=== PATIENT | female | born 1960 | race Caucasian/White ===

== ENCOUNTER → 2020-12-28 | Outpatient (CLI) | payer OTHER ==
[~2020-12-28] MED LIST: BENTYL 10MG CAP10 MG PO; CYMBALTA60 MG PO; FOLIC ACID1 MG PO; HUMIRA40 MG/0.8 SQ; KETOCONAZOLE120 ML TP; LYRICA 75 MG CA75 MG PO; METHOTREXATE T2.5 MG PO; MOVANTIK25 MG PO; NAPROXEN500 MG PO; OXYCODON-ACETA1 EAC1 PO; PROTONIX40 MG PO; ROBAXIN 750 MG750 MG PO; SYNTHROID75 MCG PO; XANAX0.5 MG PO; ZOFRAN ODT 4 MG4 MG SL; ZYRTEC10 MG PO
== END ==
LOC: RAD 08:37
PROC: B01B1ZZ Fluoroscopy of Spinal Cord using Low Osmolar Contrast (ICD-10-PCS; principal; 2020-12-28)
DX: M54.5 Low back pain (principal); Z98.1 Arthrodesis status
CPT/HCPCS: 72132

== ENCOUNTER 2021-02-03 17:41 | Emergency (ER) | payer OTHER ==
[2021-02-03 18:32] LABS: HEMOGLOBIN 13.1 gm/dl (12.3-15.3); RED BLOOD COUNT 4.68 M/UL (4.00-5.10); WHITE BLOOD COUNT 11.4 K/UL (4.5-11.0)
[2021-02-03 18:46] LABS: BUN/CREATININE RATIO 15 (0-10)
[2021-02-03] MEDS ORDERED: ZOFRAN ODT 4 MG4 MG SL (20:59)
== END 2021-02-03 21:30 | disposition home or self-care (01) ==
LOC: ER1 17:41
PROVIDERS: Physician Assistant
DX: R10.9 Unspecified abdominal pain (principal); R11.0 Nausea
CPT/HCPCS: 80053; 85025; 96374; 96375; 99284; J2270; J2405; J7030; Q9967

== ENCOUNTER 2021-02-04 16:28 | Observation (INO) | payer OTHER ==
[~2021-02-04] VITALS: Ht 162.6 cm; Wt 77.1 kg
[~2021-02-04 16:28] MED LIST changes: -BENTYL 10MG CAP10 MG PO; -CYMBALTA60 MG PO; -FOLIC ACID1 MG PO; -HUMIRA40 MG/0.8 SQ; -KETOCONAZOLE120 ML TP; -LYRICA 75 MG CA75 MG PO; -METHOTREXATE T2.5 MG PO; -MOVANTIK25 MG PO; -NAPROXEN500 MG PO; -OXYCODON-ACETA1 EAC1 PO; -PROTONIX40 MG PO; -ROBAXIN 750 MG750 MG PO; -SYNTHROID75 MCG PO; -XANAX0.5 MG PO; -ZYRTEC10 MG PO
[2021-02-04 18:10] LABS: HEMOGLOBIN 10.9 gm/dl (12.3-15.3); RED BLOOD COUNT 3.98 M/UL (4.00-5.10); WHITE BLOOD COUNT 10.3 K/UL (4.5-11.0)
[2021-02-05] MEDS ORDERED: BENTYL 10MG CAP10 MG PO (00:19)
[2021-02-05] MEDS ORDERED: CYMBALTA60 MG PO (00:20)
[2021-02-05] MEDS ORDERED: NAPROXEN500 MG PO (00:22)
[2021-02-05] MEDS ORDERED: HUMIRA40 MG/0.8 SQ (00:23)
[2021-02-05] MEDS ORDERED: METHOTREXATE T2.5 MG PO (00:25)
[2021-02-05] MEDS ORDERED: LYRICA 75 MG CA75 MG PO (00:26)
[2021-02-05] MEDS ORDERED: MOVANTIK25 MG PO (00:26)
[2021-02-05] MEDS ORDERED: OXYCODON-ACETA1 EAC1 PO (00:27)
[2021-02-05] MEDS ORDERED: XANAX0.5 MG PO (00:27)
[2021-02-05] MEDS ORDERED: ROBAXIN 750 MG750 MG PO (00:28)
[2021-02-05] MEDS ORDERED: SYNTHROID75 MCG PO (00:29)
[2021-02-05] MEDS ORDERED: PROTONIX40 MG PO (00:29)
[2021-02-05] MEDS ORDERED: ZYRTEC10 MG PO (00:30)
[2021-02-05] MEDS ORDERED: KETOCONAZOLE120 ML TP (00:32)
[2021-02-05] MEDS ORDERED: FOLIC ACID1 MG PO (00:32)
[2021-02-05 03:47] LABS: HEMOGLOBIN 9.2 gm/dl (12.3-15.3)
[2021-02-05 03:51] LABS: RED BLOOD COUNT 3.35 M/UL (4.00-5.10); WHITE BLOOD COUNT 6.5 K/UL (4.5-11.0)
[2021-02-05 04:17] LABS: BUN/CREATININE RATIO 12 (0-10)
== END 2021-02-05 16:10 | disposition home or self-care (01) ==
LOC: ER1 16:28 → CDU 19:38 → MED SURG 4 22:01
PROVIDERS: Physician Assistant Medical; ADMIT Internal Medicine Infectious Disease
DX: R10.84 Generalized abdominal pain (principal); E86.0 Dehydration; G89.4 Chronic pain syndrome; E03.9 Hypothyroidism, unspecified; M35.00 Sjogren syndrome, unspecified; L40.50 Arthropathic psoriasis, unspecified; R11.0 Nausea; F41.9 Anxiety disorder, unspecified; Z93.3 Colostomy status; Z20.822 Contact with and (suspected) exposure to COVID-19; Z98.890 Other specified postprocedural states; Z79.899 Other long term (current) drug therapy
CPT/HCPCS: 36415; 74018; 80048; 80053; 81001; 83605; 83690; 83735; 84443; 85025; 96374; 96375; 96376; 99285; G0378; J2270; J2405; J3480; J7030; J7121; U0002

== ENCOUNTER → 2021-04-04 | Outpatient (CLI) | payer OTHER ==
[~2021-04-04] MED LIST changes: +BENTYL 10MG CAP10 MG PO; +CYMBALTA60 MG PO; +FOLIC ACID1 MG PO; +HUMIRA40 MG/0.8 SQ; +KETOCONAZOLE120 ML TP; +LYRICA 75 MG CA75 MG PO; +METHOTREXATE T2.5 MG PO; +MOVANTIK25 MG PO; +NAPROXEN500 MG PO; +OXYCODON-ACETA1 EAC1 PO; +PROTONIX40 MG PO; +ROBAXIN 750 MG750 MG PO; +SYNTHROID75 MCG PO; +XANAX0.5 MG PO; +ZYRTEC10 MG PO
== END ==
LOC: RAD 20:18
DX: R10.9 Unspecified abdominal pain (principal); K59.00 Constipation, unspecified
CPT/HCPCS: 74018

== ENCOUNTER → 2021-04-06 | Outpatient (CLI) | payer OTHER | LOC: RAD 19:57 | DX: R10.9 Unspecified abdominal pain (principal); K59.00 Constipation, unspecified | CPT/HCPCS: 74018 ==

== ENCOUNTER → 2021-04-08 | Outpatient (CLI) | payer OTHER | LOC: RAD 11:32 | DX: R10.9 Unspecified abdominal pain (principal); K59.00 Constipation, unspecified | CPT/HCPCS: 74018 ==

== ENCOUNTER 2021-05-21 16:34 | Emergency (ER) | payer MEDICARE, OTHER | END 2021-05-21 17:00 | disposition left against medical advice (07) | LOC: ER1 16:34 | DX: Z53.21 Procedure and treatment not carried out due to patient leaving prior to being seen by health care provider (principal) ==

== ENCOUNTER → 2021-06-25 | Outpatient (CLI) | payer MEDICARE, OTHER ==
[~2021-06-25] VITALS: Ht 160 cm; Wt 81.6 kg
[~2021-06-25] MED LIST changes: +BENADRYL25 MG PO; +DECADRON6 MG PO; +FLEXERIL 10 MG PO; +PREDNISONE20 MG PO; +Voltaren Gel 1 % TOP
== END ==
LOC: OPSV 12:09
DX: L40.50 Arthropathic psoriasis, unspecified (principal)
CPT/HCPCS: 96365; 96375; J1602; J2920

== ENCOUNTER 2021-07-20 10:21 | Emergency (ER) | payer MEDICARE, OTHER ==
[~2021-07-20 10:21] MED LIST changes: -BENADRYL25 MG PO; -DECADRON6 MG PO; -FLEXERIL 10 MG PO; -PREDNISONE20 MG PO; -Voltaren Gel 1 % TOP
[2021-07-20] MEDS ORDERED: PREDNISONE20 MG PO (11:37)
[2021-07-20] MEDS ORDERED: BENADRYL25 MG PO (11:37)
== END 2021-07-20 13:01 | disposition home or self-care (01) ==
LOC: ER1 10:21
DX: R21 Rash and other nonspecific skin eruption (principal); M19.90 Unspecified osteoarthritis, unspecified site
CPT/HCPCS: 96374; 96375; 99282; J1200; J2930

== ENCOUNTER 2021-07-22 11:56 | Emergency (ER) | payer MEDICARE, OTHER ==
[~2021-07-22 11:56] MED LIST changes: +BENADRYL25 MG PO; +PREDNISONE20 MG PO
[2021-07-22] MEDS ORDERED: DECADRON6 MG PO (13:05)
== END 2021-07-22 13:25 | disposition home or self-care (01) ==
LOC: ER1 11:56
DX: L50.9 Urticaria, unspecified (principal)
CPT/HCPCS: 96372; 99282; J1100

== ENCOUNTER → 2021-08-03 | Outpatient (CLI) | payer MEDICARE, OTHER ==
[~2021-08-03] VITALS: Ht 160 cm; Wt 81.6 kg
[~2021-08-03] MED LIST changes: +DECADRON6 MG PO
== END ==
LOC: OPSV 04-27 12:00
DX: L40.50 Arthropathic psoriasis, unspecified (principal)
CPT/HCPCS: 96365; 96375; J1602; J2930

== ENCOUNTER 2021-08-13 19:04 | Emergency (ER) | payer MEDICARE, OTHER ==
[2021-08-13] MEDS ORDERED: Voltaren Gel 1 % TOP (20:34)
[2021-08-13] MEDS ORDERED: FLEXERIL 10 MG PO (20:34)
== END 2021-08-13 20:55 | disposition home or self-care (01) ==
LOC: ER1 19:04
DX: S46.911A Strain of unspecified muscle, fascia and tendon at shoulder and upper arm level, right arm, initial encounter (principal); Z87.891 Personal history of nicotine dependence; W19.XXXA Unspecified fall, initial encounter; Y92.009 Unspecified place in unspecified non-institutional (private) residence as the place of occurrence of the external cause
CPT/HCPCS: 73030; 99283

== ENCOUNTER → 2021-09-18 | Outpatient (CLI) | payer MEDICARE, OTHER ==
[~2021-09-18] VITALS: Ht 162.6 cm; Wt 84.4 kg
[~2021-09-18] MED LIST changes: +FLEXERIL 10 MG PO; +Voltaren Gel 1 % TOP
== END ==
LOC: OPSV 12:58
DX: D50.9 Iron deficiency anemia, unspecified (principal)
CPT/HCPCS: 96365; J1756

== ENCOUNTER → 2021-09-20 | Outpatient (CLI) | payer MEDICARE, OTHER ==
[~2021-09-20] VITALS: Ht 162.6 cm; Wt 84.4 kg
== END ==
LOC: OPSV 07:48
DX: D50.9 Iron deficiency anemia, unspecified (principal)
CPT/HCPCS: 96365; J1756

== ENCOUNTER → 2021-09-25 | Outpatient (CLI) | payer MEDICARE, OTHER ==
[~2021-09-25] VITALS: Ht 162.6 cm; Wt 84.4 kg
== END ==
LOC: OPSV 07:57
DX: D50.9 Iron deficiency anemia, unspecified (principal)
CPT/HCPCS: 96365; J1756

== ENCOUNTER → 2021-09-27 | Outpatient (CLI) | payer MEDICARE, OTHER ==
[~2021-09-27] VITALS: Ht 162.6 cm; Wt 84.4 kg
== END ==
LOC: OPSV 07:47
DX: D50.9 Iron deficiency anemia, unspecified (principal)
CPT/HCPCS: 96365; J1756

== ENCOUNTER → 2021-09-28 | Outpatient (CLI) | payer MEDICARE, OTHER ==
[~2021-09-28] VITALS: Ht 160 cm; Wt 81.6 kg
== END ==
LOC: OPSV 06:43
DX: L40.50 Arthropathic psoriasis, unspecified (principal)
CPT/HCPCS: 96365; 96375; J1602; J2920

== ENCOUNTER → 2021-10-02 | Outpatient (CLI) | payer MEDICARE, OTHER ==
[~2021-10-02] VITALS: Ht 162.6 cm; Wt 84.4 kg
== END ==
LOC: OPSV 07:41
DX: D50.9 Iron deficiency anemia, unspecified (principal)
CPT/HCPCS: 96365; J1756

== ENCOUNTER → 2021-11-30 | Outpatient (CLI) | payer MEDICARE, OTHER ==
[~2021-11-30] VITALS: Ht 160 cm; Wt 81.6 kg
== END ==
LOC: OPSV 11-23 07:00
DX: L40.50 Arthropathic psoriasis, unspecified (principal)
CPT/HCPCS: 96365; 96375; J1602; J2920

== ENCOUNTER 2021-12-16 11:56 | Emergency (ER) | payer MEDICARE, OTHER ==
[2021-12-16] MEDS ORDERED: CYCLOBENZAPRINE15 MG PO (15:58)
[2021-12-17] MEDS ORDERED: ZOFRAN ODT 4 MG4 MG SL (18:13)
== END 2021-12-16 16:10 | disposition home or self-care (01) ==
LOC: ER1 11:56
DX: M54.50 Low back pain, unspecified (principal)
CPT/HCPCS: 72040; 72070; 72100; 72220; 99283

== ENCOUNTER 2021-12-17 13:12 | Emergency (ER) | payer MEDICARE, OTHER ==
[~2021-12-17 13:12] MED LIST changes: +CYCLOBENZAPRINE15 MG PO
[2021-12-17 15:10] LABS: HEMOGLOBIN 11.2 gm/dl (12.3-15.3); RED BLOOD COUNT 4.24 M/UL (4.00-5.10); WHITE BLOOD COUNT 5.5 K/UL (4.5-11.0)
[2021-12-17 15:57] LABS: BUN/CREATININE RATIO 13 (0-10)
[2021-12-17] MEDS ORDERED: ZOFRAN ODT 4 MG4 MG SL (18:13)
== END 2021-12-17 18:35 | disposition home or self-care (01) ==
LOC: ER1 13:12
PROVIDERS: Student in an Organized Health Care Education/Training Program
DX: U07.1 COVID-19 (principal)
CPT/HCPCS: 0240U; 71045; 80053; 82550; 82553; 83735; 83874; 84439; 84443; 84484; 85025; 93005; 99285

== ENCOUNTER → 2021-12-19 | Outpatient (CLI) | payer MEDICARE, OTHER ==
[~2021-12-19] VITALS: Ht 165.1 cm; Wt 81.6 kg
== END ==
LOC: EROP 13:40
DX: Z23 Encounter for immunization (principal); U07.1 COVID-19; D84.9 Immunodeficiency, unspecified; E11.9 Type 2 diabetes mellitus without complications; D64.9 Anemia, unspecified; L40.50 Arthropathic psoriasis, unspecified
CPT/HCPCS: M0247; Q0247

== ENCOUNTER 2022-01-15 18:43 | Emergency (ER) | payer MEDICARE, OTHER | END 2022-01-15 22:42 | disposition home or self-care (01) | LOC: ER1 18:43 | DX: M79.675 Pain in left toe(s) (principal) | CPT/HCPCS: 73630; 99283 ==

== ENCOUNTER → 2022-01-19 | Outpatient (CLI) | payer MEDICARE, OTHER ==
[2022-01-19 09:14] LABS: HEMOGLOBIN 11.2 gm/dl (12.3-15.3); RED BLOOD COUNT 4.11 M/UL (4.00-5.10); WHITE BLOOD COUNT 8.1 K/UL (4.5-11.0)
== END ==
LOC: LAB 08:48
PROVIDERS: Internal Medicine
DX: L40.50 Arthropathic psoriasis, unspecified (principal); D64.9 Anemia, unspecified; E55.9 Vitamin D deficiency, unspecified; Z79.899 Other long term (current) drug therapy
CPT/HCPCS: 36415; 80053; 82728; 85025; 85652; 86140

== ENCOUNTER → 2022-01-25 | Outpatient (CLI) | payer MEDICARE, OTHER ==
[~2022-01-25] VITALS: Ht 160 cm; Wt 81.6 kg
== END ==
LOC: OPSV 07:57
DX: L40.50 Arthropathic psoriasis, unspecified (principal)
CPT/HCPCS: 96365; 96375; J1602; J2920

== ENCOUNTER 2022-02-17 16:03 | Emergency (ER) | payer MEDICARE, OTHER | END 2022-02-17 17:02 | disposition left against medical advice (07) | LOC: ER1 16:03 | DX: Z53.21 Procedure and treatment not carried out due to patient leaving prior to being seen by health care provider (principal) ==

== ENCOUNTER → 2022-03-13 | Outpatient (CLI) | payer MEDICARE, OTHER ==
[~2022-03-13] VITALS: Ht 162.6 cm; Wt 78.5 kg
== END ==
LOC: OPSV 10:00
DX: D64.9 Anemia, unspecified (principal)
CPT/HCPCS: 96365; J1756

== ENCOUNTER 2022-04-22 20:14 | Emergency (ER) | payer OTHER, MEDICARE | END 2022-04-23 01:47 | disposition home or self-care (01) | LOC: ER1 20:14 | DX: S13.4XXA Sprain of ligaments of cervical spine, initial encounter (principal); S33.5XXA Sprain of ligaments of lumbar spine, initial encounter; S70.12XA Contusion of left thigh, initial encounter; S40.022A Contusion of left upper arm, initial encounter; V49.40XA Driver injured in collision with unspecified motor vehicles in traffic accident, initial encounter; Y92.410 Unspecified street and highway as the place of occurrence of the external cause | CPT/HCPCS: 72125; 72128; 72131; 73060; 73552; 96372; 99284; J1885 ==

== ENCOUNTER 2022-06-12 19:35 | Emergency (ER) | payer MEDICARE, OTHER | END 2022-06-12 21:21 | disposition left against medical advice (07) | LOC: ER1 19:35 | DX: Z53.21 Procedure and treatment not carried out due to patient leaving prior to being seen by health care provider (principal) ==

== ENCOUNTER → 2022-06-12 | Outpatient (CLI) | payer MEDICARE, OTHER ==
[~2022-06-12] VITALS: Ht 162.6 cm; Wt 78.5 kg
== END ==
LOC: OPSV 06-10 09:00
DX: D64.9 Anemia, unspecified (principal)
CPT/HCPCS: 96365; J1756